=== PATIENT | male | born 1980 | race Two or more races ===

== ENCOUNTER 2019-02-17 20:24 | Inpatient (IN) | payer OTHER ==
[~2019-02-17] VITALS: Ht 175.3 cm; Wt 75.4 kg
[2019-02-17] MEDS ORDERED: CLONI1TA PO (20:46)
[2019-02-17] MEDS ORDERED: LUNE3TAB36 PO (20:46)
[2019-02-17] MEDS ORDERED: CLAR10CA3 PO (20:46)
[2019-02-17 21:20] LABS: HEMATOCRIT 44.5 % (42.0-52.0); HEMOGLOBIN 13.9 g/dl (13.5-17.5); MEAN CORPUSCULAR HEMOGLOBIN 25.6 pg (27.0-33.0); MEAN CORPUSCULAR HGB CONC 31.2 g/dl (32.0-36.5); MEAN CORPUSCULAR VOLUME 81.8 fl (80.0-96.0); PLATELET COUNT, AUTOMATED 235 10^3/uL (150-450); RED BLOOD COUNT 5.44 10^6/uL (4.30-6.10); WHITE BLOOD COUNT 8.2 10^3/uL (4.0-10.0)
[2019-02-17 21:35] LABS: AMPHETAMINES LEVEL URINE NEGATIVE (NEGATIVE); BARBITURATES URINE NEGATIVE (NEGATIVE); BENZODIAZEPINES URINE NEGATIVE (NEGATIVE); CANNABINOIDS URINE NEGATIVE (NEGATIVE); COCAINE METABOLITE URINE NEGATIVE (NEGATIVE); METHADONE URINE NEGATIVE (NEGATIVE); OPIATES URINE NEGATIVE (NEGATIVE); PHENCYCLIDINE URINE NEGATIVE (NEGATIVE)
[2019-02-17 21:38] LABS: ACETAMINOPHEN LEVEL < 2.0 UG/ML (10.0-30.0); ALBUMIN 4.2 GM/DL (3.2-5.2); ALT/SGPT 27 U/L (12-78); BILIRUBIN,DIRECT 0.1 MG/DL (0.0-0.2); BILIRUBIN,TOTAL 0.2 MG/DL (0.2-1.0); BLOOD UREA NITROGEN 14 MG/DL (7-18); CALCIUM LEVEL 8.7 MG/DL (8.5-10.1); CARBON DIOXIDE LEVEL 32 MEQ/L (21-32); CHLORIDE LEVEL 104 MEQ/L (98-107); CREATININE FOR GFR 1.18 MG/DL (0.70-1.30); ETHYL ALCOHOL (ETHANOL) 0.074 % (0.000-0.010); GLOMERULAR FILTRATION RATE > 60.0 (>60); GLUCOSE, FASTING 107 MG/DL (70-100); POTASSIUM SERUM 3.9 MEQ/L (3.5-5.1); SALICYLATE LEVEL 1.8 MG/DL (5.0-30.0); SODIUM LEVEL 143 MEQ/L (136-145)
[2019-02-17] MEDS ORDERED: BENA25CA4 PO (21:39)
[2019-02-17] MEDS ORDERED: SERT25TA88 PO (22:19)
[2019-02-17] MEDS ORDERED: FLON1SPR NARES (22:19)
[2019-02-17] MEDS ORDERED: DICY1CAP8 PO (22:19)
[2019-02-17] MEDS ORDERED: LORA-674 PO (22:19)
[2019-02-17] MEDS ORDERED: REFR0.5D8 OU (22:19)
[2019-02-17] MEDS ORDERED: OMEP-218 PO (22:19)
[2019-02-17] MEDS ORDERED: HYDR-3363 PO (22:19)
[2019-02-17] MEDS ORDERED: PROZ20CA11 PO (22:19)
[2019-02-17] MEDS ORDERED: MAALOX 30 ML SUSP *UDC PO PRN (23:15)
[2019-02-17] MEDS ORDERED: MOM 30ML SUSPENSION UDC PO PRN (23:15)
[2019-02-17] MEDS ORDERED: ACETAMINOPHEN TAB 650MG DOSE (2X325MG) PO PRN (23:15)
[2019-02-18 00:20] VITALS: BP 143/88
[2019-02-18] MEDS: traZODone 50 MG TAB PO PRN ×2 (00:35→22:01)
[2019-02-18 06:00] VITALS: BP 133/62
--- NOTE | 2019-02-18 08:32 | HPEPDOC ---
[facility] Medical History & Physical Date of Admission Feb 17, 2019 Date of Service: Feb 18, 2019 History and Physical CHIEF COMPLAINT: Anxiety/PTSD HISTORY OF PRESENT ILLNESS: Lauren is 38-year-old man with past medical history of PTSD and chronic right shoulder pain secondary to previous injury stated that he came into the hospital because he has no place to stay and has PTSD. He denies having any chronic medical problems and denies any significant depression or suicidal ideation at this time. He states that he feels well physically and just the mental stress he is dealing with at this time. Denies any complaints including chest pain, shortness of breath, constipation/diarrhea. PAST MEDICAL HISTORY: Refer to [facility] PAST SURGICAL HISTORY: None SOCIAL HISTORY: Denies tobacco or illicit drug use. Social alcohol consumption FAMILY HISTORY: None noted ALLERGIES: Please see below. REVIEW OF SYSTEMS: 10 point review of system negative except as stated in [facility] HOME MEDICATIONS: Please see below. PHYSICAL EXAMINATION: General: No acute distress, Alert Eyes: Normal sclera, EOMI, HELGA HENT: Atraumatic, neck supple, moist mucous membranes Cardiovascular: Normal rate, normal rhythm. No murmurs appreciated. Pulmonary: Clear to auscultation b/l, no wheezing GI: Soft, nontender, nondistended Skin: Warm and dry Neuro: CN grossly intact. No focal deficits. Strengths equal b/l. Psych: oriented x 3 LABORATORY DATA: See below. MICROBIOLOGY: Please see below. ASSESSMENT AND PLAN: 1. PTSD/stress - Assessment and therapy per Psych. - No suicidal ideation at time. Was in . 2. Chronic pain - Tylenol PRN for joint pain 3. TSH 4.5 - Asymptomatic. Reportedly thyroid function had been checked in the past and noted to be normal. - Will do free T4. f/u Free T4, likely will just need monitoring and repeat level in several weeks with PCP. Vital Signs Vital Signs Date Time Temp Pulse Resp B/P (MAP) Pulse Ox O2 Delivery O2 Flow Rate FiO2 02/18/19 06:00 98.5 53 16 133/62 (85) 02/18/19 00:20 99 Laboratory Data Labs 24H Laboratory Tests 2 02/17/19 20:40: Nucleated Red Blood Cells % (auto) 0.0, Anion Gap 7L, Glomerular Filtration Rate > 60.0, Calcium Level 8.7, Aspartate Amino Transf (AST/SGOT) 15, Alanine Aminotransferase (ALT/SGPT) 27, Alkaline Phosphatase 49, Total Bilirubin 0.2, Direct Bilirubin 0.1, Total Protein 8.0, Albumin 4.2, Albumin/Globulin Ratio 1.11, Thyroid Stimulating Hormone (TSH) 4.500H, Salicylates Level 1.8L, Urine Amphetamines Screen NEGATIVE, Urine Benzodiazepines Screen NEGATIVE, Urine Opiates Screen NEGATIVE, Urine Methadone Screen NEGATIVE, Acetaminophen Level < 2.0L, Urine Barbiturates Screen NEGATIVE, Urine Phencyclidine Screen NEGATIVE, Urine Cocaine Metabolite Screen NEGATIVE, Urine Cannabinoids Screen NEGATIVE, Ethyl Alcohol Level 0.074H CBC/BMP Laboratory Tests 02/17/19 20:40 Red Blood Count 5.44, Mean Corpuscular Volume 81.8, Mean Corpuscular Hemoglobin 25.6 L, Mean Corpuscular Hemoglobin Concent 31.2 L, Red Cell Distribution Width 13.6 Home Medications Scheduled Clonidine Hcl (Clonidine HCl) 0.1 Mg Tablet, 0.1 MG PO QHS Eszopiclone (Lunesta) 3 Mg Tablet, 3 MG PO QHS Fluoxetine HCl (Prozac) 20 Mg Capsule, 60 MG PO DAILY Fluticasone Propionate (Flonase Allergy Relief) 9.9 Ml [place].susp, 1 SPRAY NARES DAILY Scheduled PRN Carboxymethylcellulose Sodium (Refresh Tears) 15 Ml Drops, 2 DROP OU DAILY PRN for DRY EYES Dicyclomine HCl (Dicyclomine HCl) 10 Mg Capsule, 20 MG PO BID PRN for STOMACH PAIN Hydroxyzine HCl (Hydroxyzine HCl) 25 Mg Tablet, 25 MG PO DAILY PRN for ANXIETY/AGITATION Loratadine (Loratadine) 10 Mg Tablet, 10 MG PO DAILY PRN for ALLERGIES Allergies Coded Allergies: Sulfa (Sulfonamide Antibiotics) (Verified Adverse Reaction, Unknown, rash, 02/17/19) A-FIB/CHADSVASC A-FIB History Current/History of A-Fib/PAF?: No DELIA WALSH MD Feb 18, 2019 08:32
[2019-02-18] MEDS: buPROPion **XL** TABLET 150MG (WELLBUTRIN XL) PO SCH (13:50)
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
[2019-02-18 18:03] VITALS: BP 145/85
[2019-02-18] MEDS: cloNIDine 0.1 MG TAB PO SCH (22:02)
[2019-02-19 06:00] VITALS: BP 110/64
[2019-02-19] MEDS: buPROPion **XL** TABLET 150MG (WELLBUTRIN XL) PO SCH (08:05)
[2019-02-19] MEDS ORDERED: buPROPion **XL** TABLET 150MG (WELLBUTRIN XL) PO SCH (09:00)
--- NOTE | 2019-02-19 12:16 | MHHPEPDOC ---
[facility] History & Physical History and Physical DATE OF ADMISSION: Feb 17, 2019 at 23:15 LEGAL STATUS AT ADMISSION: . CHIEF COMPLAINT: . HISTORY OF PRESENT ILLNESS: Patient is a 38-year-old male, who PSYCHIATRIC REVIEW OF SYSTEMS: Affective: . Anxiety: . Trauma: . Psychosis: . Personality: . PAST PSYCHIATRIC HISTORY: Prior Psychiatric Disorder: . Outpatient Treatment: . Suicidal/Self injurious: [Denies]. Psychotropic Medication History: . ALLERGIES: Please see below. FAMILY PSYCHIATRIC HISTORY: [Denies]. SOCIAL HISTORY: Early Relations/development: . Sibling order: . Paternal relationships: . Education: . Occupational: . Legal: . Marital: . Economic: . Supports: . Abuse/trauma: . SUBSTANCE ABUSE HISTORY: . PAST MEDICAL/SURGICAL HISTORY: [None]. VITAL SIGNS: Please see below. MENTAL STATUS EXAMINATION: General appearance: Patient is a -year old male, who is . Speech: . Thought processes: . Thought content: . Abstract reasoning and computation: . Description of associations: . Description of abnormal or psychotic thoughts: . Judgment: . Insight: . Orientation: . Recent and remote memory: . Attention span and concentration: . Fund of knowledge: . Mood: "." Affect: . DIAGNOSES: 1. . 2. . 3. . ASSESSMENT: PROBLEM LIST: 1. . 2. . 3. . INITIAL TREATMENT PLAN: 1. Patient was admitted on a . 2. Complete history was obtained. 3. With patients permission, family will be contacted and database will be expanded. 4. Patients medication regimen will be reviewed and changed accordingly. 5. Patient will be provided with protected environment. 6. Patient will be treated with individual, group, and milieu therapies. 7. Patient will receive supportive psych-education. 8. Discharge planning will commence immediately. 9. Outpatient follow-up treatment will be strongly recommended. 10. The initial treatment plan will focus initially on: * Depression. * Risk for suicide. * Substance abuse. ESTIMATED LENGTH OF STAY: - DAYS. TIME SPENT COUNSELING AND COORDINATING INITIAL CARE: minutes. Vital Signs Vital Signs Date Time Temp Pulse Resp B/P (MAP) Pulse Ox O2 Delivery O2 Flow Rate FiO2 02/19/19 06:00 98.2 56 16 110/64 (79) 02/18/19 00:20 99 Medications Scheduled Clonidine Hcl (Clonidine HCl) 0.1 Mg Tablet, 0.1 MG PO QHS, (Reported) Eszopiclone (Lunesta) 3 Mg Tablet, 3 MG PO QHS, (Reported) Fluoxetine HCl (Prozac) 20 Mg Capsule, 60 MG PO DAILY, (Reported) Fluticasone Propionate (Flonase Allergy Relief) 9.9 Ml [place].susp, 1 SPRAY NARES DAILY, (Reported) Scheduled PRN Carboxymethylcellulose Sodium (Refresh Tears) 15 Ml Drops, 2 DROP OU DAILY PRN for DRY EYES, (Reported) Dicyclomine HCl (Dicyclomine HCl) 10 Mg Capsule, 20 MG PO BID PRN for STOMACH PAIN, (Reported) Hydroxyzine HCl (Hydroxyzine HCl) 25 Mg Tablet, 25 MG PO DAILY PRN for ANXIETY/AGITATION, (Reported) Loratadine (Loratadine) 10 Mg Tablet, 10 MG PO DAILY PRN for ALLERGIES, (Reported) Allergies Coded Allergies: Sulfa (Sulfonamide Antibiotics) (Verified Adverse Reaction, Unknown, rash, 02/17/19) RO STRATTON DO Feb 19, 2019 12:16
--- NOTE | 2019-02-19 12:17 | MHIPNPDOC ---
[facility] Progress Note Progress Note Inpatient Progress Note Kimberly Back Age 38 Male Date of : 1980 Date of Service: 02/19/2019 History of Present Illness The patient is a 38-year old man with a history of no significant past psychiatric history presents after multiple psychosocial stressors provoked him into mild passive SI. He had been noted to be drinking on the night in question and was unable to contract for safety. His is a strong support and reports that she had noticed him becoming increasingly depressed as he has not been able to engage in his regular activities recently due to multiple stressors including living in a hotel room as she has recently restationed taking care of their children. Interval History The patient was met with today. He described that he was feeling much improved on the Wellbutrin and that he noted that he was feeling close to ready for discharge as he was able to attend to his needs, engage in safety planning and attend groups with no behavioral issues on the unit. Review Of Systems The patient denies any symptoms of depression at this time. He demonstrates no signs or symptoms of marianna or psychosis. Psychotherapy None on this visit. Vital Signs Reviewed. Mental Status Examination General: Well dressed with good hygiene Speech: Spontaneous and fluid Thought processes: Linear and logical MSK: Smooth and coordinated gait, no signs of tremors or involuntary orofacial movements Thought content: Future orientated Abstract reasoning, and computation: Intact Description of associations: Intact Description of abnormal or psychotic thoughts: Denies any suicidal or homicidal ideation. Denies any auditory or visual hallucinations. Does not appear to be re sponding to internal stimuli. Does not appear to be endorsing any bizarre or paranoid ideation. Judgment: fair Insight: fair Orientation: Alert and orientated 3 Cognition: Grossly normal Recent and remote memory: Intact Attention span and concentration: Intact Fund of knowledge: Adequate Mood: "okay" Affect: Euthymic with a full range Diagnoses Adjustment disorder with disruption of mood and conduct. Alcohol use disorder, mild. Assessment and Plan The patient is a 38-year-old man with no significant past psychiatric history presents after multiple psychosocial stressors. He has done well on the unit with a relatively low dose of an antidepressant. He will likely be ready for discharge shortly as outpatient triage can be planned. Continue Wellbutrin 150 mg of extended release with no changes at this time. Disposition The patient will need further inpatient admission in order to further engage in safety planning. His disposition will likely result in discharge in the next few days. Time Spent 15 minutes [id number]. Vital Signs Vital Signs Date Time Temp Pulse Resp B/P (MAP) Pulse Ox O2 Delivery O2 Flow Rate FiO2 02/19/19 06:00 98.2 56 16 110/64 (79) 02/18/19 00:20 99 Current Medications Current Medications Acetaminophen (Tylenol Tab) 650 mg Q6HP PRN PO HEADACHE or DISCOMFORT; Start 02/17/19 at 23:15 Al Hydrox/Mg Hydrox/Simethicone (Mylanta) 30 ml Q4HP PRN PO HEARTBURN/INDIGESTION; Start 02/17/19 at 23:15 Bupropion HCl (Wellbutrin Xl) 150 mg DAILY PO Last administered on 02/19/19at 08:05; Start 02/18/19 at 12:30 Bupropion HCl (Wellbutrin Xl) 150 mg DAILY PO ; Start 02/19/19 at 09:00; Stop 02/19/19 at 09:00; Status DC Clonidine HCl (Catapres) 0.1 mg QHS PO Last administered on 02/18/19at 22:02; Start 02/18/19 at 21:00 Home Med (Med Rec Complete!) ASDIRECTED XX ; Start 02/17/19 at 22:45; Stop 02/17/19 at 22:45; Status DC Magnesium Hydroxide (Milk Of Magnesia) 30 ml DAILYPRN PRN PO CONSTIPATION; Sta rt 02/17/19 at 23:15 Trazodone HCl (Desyrel) 50 mg QHSP PRN PO INSOMNIA Last administered on 02/18/19at 22:01; Start 02/17/19 at 23:15 Allergies Coded Allergies: Sulfa (Sulfonamide Antibiotics) (Verified Adverse Reaction, Unknown, rash, 02/17/19) RO SRTATTON DO Feb 19, 2019 12:17
[2019-02-19 18:00] VITALS: BP 122/78
[2019-02-19 21:49] VITALS: BP 146/94
[2019-02-19] MEDS: cloNIDine 0.1 MG TAB PO SCH (21:49)
[2019-02-19] MEDS: traZODone 50 MG TAB PO PRN (21:49)
[2019-02-20 06:37] VITALS: BP 113/65
[2019-02-20] MEDS: buPROPion **XL** TABLET 150MG (WELLBUTRIN XL) PO SCH (08:32)
--- NOTE | 2019-02-20 10:15 | MHIPNPDOC ---
[facility] Progress Note Vital Signs Vital Signs Date Time Temp Pulse Resp B/P (MAP) Pulse Ox O2 Delivery O2 Flow Rate FiO2 02/20/19 06:37 97.2 63 14 113/65 (81) 02/18/19 00:20 99 Current Medications Current Medications Acetaminophen (Tylenol Tab) 650 mg Q6HP PRN PO HEADACHE or DISCOMFORT; Start 02/17/19 at 23:15 Al Hydrox/Mg Hydrox/Simethicone (Mylanta) 30 ml Q4HP PRN PO HEARTBURN/INDIGESTION; Start 02/17/19 at 23:15 Bupropion HCl (Wellbutrin Xl) 150 mg DAILY PO Last administered on 02/20/19at 08:32; Start 02/18/19 at 12:30 Bupropion HCl (Wellbutrin Xl) 150 mg DAILY PO ; Start 02/19/19 at 09:00; Stop 02/19/19 at 09:00; Status DC Clonidine HCl (Catapres) 0.1 mg QHS PO Last administered on 02/19/19at 21:49; Start 02/18/19 at 21:00 Home Med (Med Rec Complete!) ASDIRECTED XX ; Start 02/17/19 at 22:45; Stop 02/17/19 at 22:45; Status DC Magnesium Hydroxide (Milk Of Magnesia) 30 ml DAILYPRN PRN PO CONSTIPATION; Start 02/17/19 at 23:15 Trazodone HCl (Desyrel) 50 mg QHSP PRN PO INSOMNIA Last administered on 02/19/19at 21:49; Start 02/17/19 at 23:15 Allergies Coded Allergies: Sulfa (Sulfonamide Antibiotics) (Verified Adverse Reaction, Unknown, rash, 02/17/19) RO STRATTON DO Feb 20, 2019 10:15
[2019-02-20 11:14] VITALS: BP 113/65
--- NOTE | 2019-02-20 11:42 | MHDSPDOC ---
[facility] Discharge Summary Discharge Summary DATE OF ADMISSION: Feb 17, 2019 at 23:15 DATE OF DISCHARGE: 02/20/19 Discharge Kimberly Back Age 38 Male Date of : 1980 Date of Service: 02/20/2019 Diagnoses Adjustment disorder with disruption of mood and conduct. Alcohol use disorder, mild. History of Present Illness The patient is a 38-year old man with a history of no significant past psychiatric history presents after multiple psychosocial stressors provoked him into mild passive SI. He had been noted to be drinking on the night in question and was unable to contract for safety. His is a strong support and reports that she had noticed him becoming increasingly depressed as he has not been able to engage in his regular activities recently due to multiple stressors including living in a hotel room as she has recently restationed taking care of their children. [facility]. Treatment and Progress On The Unit The patient was admitted to the inpatient unit with primarily an adjustment issue. He quickly resolved and was able to contract for safety. He was changed on his medications to Wellbutrin 150 mg daily, that did fairly well for his mood. He was able to socialize well in the unit. He demonstrated no concerning behavior. He subsequently resolved. His who is a dehydrator was able to give him sufficient support and was amenable to taking him home after several days of admission. He was able to stabilize sufficiently and subsequently wish to be discharged. He no longer further met impatient criteria, and thus was discharged. Discharge Assessment The patient a 38-year-old who is highly functional with a master's degree presents in an acute adjustment problem related to multiple psychosocial stressors. Several days of milieu therapy and medication changes have returned his symptoms to baseline. His safety at this time is currently at baseline. His risk of suicide at his time is judged to be low. Mental Status Examination General: Well dressed with good hygiene Speech: Spontaneous and fluid Thought processes: Linear and logical MSK: Smooth and coordinated gait, no signs of tremors or involuntary orofacial movements Thought content: Future orientated Abstract reasoning, and computation: Intact Description of associations: Intact Description of abnormal or psychotic thoughts: Denies any suicidal or homicidal ideation. Denies any auditory or visual hallucinations. Does not appear to be responding to internal stimuli. Does not appear to be endorsing any bizarre or paranoid ideation. Judgment: fair Insight: fair Orientation: Alert and orientated 3 Cognition: Grossly normal Recent and remote memory: Intact Attention span and concentration: Intact Fund of knowledge: Adequate Mood: "okay" Affect: Euthymic with a full range Follow Up The social work team worked during the predischarge meeting in order to evaluate for further issues of lethality address them fully before discharge. They worked on safety planning with the patient's family members in order to ensure that the patient will have a safe and effective discharge. The amount of time spent in the coordination of care for this patient was approximately 30 minutes. Tuesday Vital Signs/I&Os Vital Signs Date Time Temp Pulse Resp B/P (MAP) Pulse Ox O2 Delivery O2 Flow Rate FiO2 02/20/19 11:14 97.2 63 14 113/65 99 Medications Scheduled Bupropion Hcl (Bupropion Xl) 150 Mg Tab.er.24h, 150 MG PO DAILY for mood for 7 Days, #7 Clonidine Hcl (Clonidine HCl) 0.1 Mg Tablet, 0.1 MG PO QHS, (Reported) Scheduled PRN Carboxymethylcellulose Sodium (Refresh Tears) 15 Ml Drops, 2 DROP OU DAILY PRN for DRY EYES, (Reported) Dicyclomine HCl (Dicyclomine HCl) 10 Mg Capsule, 20 MG PO BID PRN for STOMACH PAIN, (Reported) Loratadine (Loratadine) 10 Mg Tablet, 10 MG PO DAILY PRN for ALLERGIES, (Reported) Allergies Coded Allergies: Sulfa (Sulfonamide Antibiotics) (Verified Adverse Reaction, Unknown, rash, 02/17/19) RO STRATTON DO Feb 20, 2019 11:41
[2019-02-20] MEDS ORDERED: BUPR150T3 PO (11:44)
== END 2019-02-20 13:00 | disposition home or self-care (01) | DRG 882 ==
LOC: M ED 20:24 → M ED INP 23:15 → M PSY 23:47
PROVIDERS: ADMIT Psychiatry & Neurology Psychiatry; ATTEND Psychiatry & Neurology Addiction Medicine
DX: F43.25 Adjustment disorder with mixed disturbance of emotions and conduct (principal); F43.10 Post-traumatic stress disorder, unspecified; Z91.82 Personal history of military deployment; F10.10 Alcohol abuse, uncomplicated; Z88.2 Allergy status to sulfonamides; Z79.899 Other long term (current) drug therapy

== ENCOUNTER → 2019-11-14 | Outpatient (CLI) | payer OTHER ==
[~2019-11-14] MED LIST: BENA25CA4 PO; BUPR150T3 PO; CLAR10CA3 PO; CLONI1TA PO; DICY1CAP8 PO; FLON1SPR NARES; HYDR-3363 PO; LORA-674 PO; LUNE3TAB36 PO; OMEP-218 PO; PROZ20CA11 PO; REFR0.5D8 OU; SERT25TA21 PO
--- NOTE | 2019-11-14 10:27 | REP ---
MAXILLOFACIAL CT STUDY. HISTORY: Chronic maxillary sinusitis. CT FINDINGS: Preliminary digital parts counter associate radiographs are unremarkable. On axial CT images and coronal multiplanar re-formation images, there is a 2.5 x 1.6 cm mucous retention cyst in the floor the right maxillary sinus. The right maxillary sinus is otherwise clear. The left maxillary sinus is clear. Bony margins are intact. Ethmoid air cells are clear. Frontal sinuses are clear. Sphenoid air cells are unremarkable. Mastoid aeration is normal and symmetric. The middle ear cavities are aerated bilaterally. No intraorbital abnormality is seen. Visualized intracranial structures and deep facial soft tissues are unremarkable. There is no evidence of a nasal polyp. Bony nasal septum deviates somewhat to the left anteriorly without a visible beak. Ostiomeatal complexes are patent bilaterally on coronal multiplanar re-formation images. IMPRESSION: Mucous retention cyst in the floor the right maxillary sinus. Leftward nasal septal deviation. Otherwise negative. Electronically Signed by Hernandez Allen MD 11/14/2019 01:06 P
== END ==
LOC: M RAD 09:00
PROVIDERS: ATTEND Otolaryngology
DX: J34.1 Cyst and mucocele of nose and nasal sinus (principal); J34.2 Deviated nasal septum; J32.0 Chronic maxillary sinusitis

== ENCOUNTER 2020-03-12 09:41 | Day surgery (SDC) | payer OTHER ==
[~2020-03-12] VITALS: Ht 175.3 cm; Wt 74.8 kg
[~2020-03-12 09:41] MED LIST changes: +AIMO70IN2 SQ
[2020-03-12] MEDS ORDERED: LIDOCAINE 2% 100MG/5ML SDV (FOR ANES.) As Ordered ONE (10:35)
[2020-03-12] MEDS ORDERED: fentaNYL 100 MCG/2 ML INJECTION (J3010) As Ordered ONE (10:35)
[2020-03-12] MEDS ORDERED: SUGAMMADEX SODIUM 500 MG/5 ML VIAL (BRIDION) As Ordered ONE ×2 (10:35→11:35)
[2020-03-12] MEDS ORDERED: MIDAZOLAM INJ 2MG/2ML VIAL (J2250 PER 1MG) As Ordered ONE (10:35)
[2020-03-12] MEDS ORDERED: propofoL 200 MG/20 ML VIAL As Ordered ONE (10:35)
[2020-03-12] MEDS ORDERED: ONDANSETRON 4MG/2ML VIAL As Ordered ONE (10:35)
[2020-03-12] MEDS ORDERED: dexameTHASONE 4 MG/ML 1ML VIAL (J1100 PER 1MG) As Ordered ONE (10:35)
[2020-03-12] MEDS ORDERED: ROCURONIUM BROMIDE 50 MG/5 ML VIAL As Ordered ONE (10:35)
[2020-03-12] MEDS ORDERED: EPINEPHrine 1MG/ML INJ 30ML MD-VIAL As Ordered ONE (10:39)
[2020-03-12] MEDS ORDERED: METHYLENE BLUE 0.5% (5MG/ML) 10 ML AMP (PROVAYBLUE) As Ordered ONE (10:39)
[2020-03-12] MEDS ORDERED: LIDOCAINE W/EPINEPHRINE 1% 20ML VIAL As Ordered ONE (10:39)
[2020-03-12] MEDS ORDERED: LABETALOL 100MG/20ML VIAL As Ordered ONE (11:17)
[2020-03-12] MEDS ORDERED: SODIUM CHLORIDE 0.9% NASAL GEL 15GM (AYR) As Ordered ONE (11:42)
== END 2020-03-12 14:05 | disposition home or self-care (01) ==
LOC: M SDC 09:41
PROVIDERS: ATTEND Otolaryngology
DX: J34.2 Deviated nasal septum (principal); F43.10 Post-traumatic stress disorder, unspecified; G47.30 Sleep apnea, unspecified; F41.9 Anxiety disorder, unspecified; F32.9 Major depressive disorder, single episode, unspecified; Z88.2 Allergy status to sulfonamides; Z79.899 Other long term (current) drug therapy; G43.909 Migraine, unspecified, not intractable, without status migrainosus
CPT/HCPCS: 30520; 88300; J1100; J2250; J2405; J3010; Q9968

== ENCOUNTER 2020-09-01 09:26 | Day surgery (SDC) | payer OTHER ==
[~2020-09-01] VITALS: Ht 182.9 cm; Wt 75.3 kg
[~2020-09-01 09:26] MED LIST changes: -BUPR150T3 PO; +BUPR150T4 PO; +LORA2CON5 PO; +NS 1,000 ML IV ONE; +PANT40TA29 PO
--- OUTSIDE RECORDS SUMMARY | 2020-09-01 09:31 | CCD | Continuity of Care Document ---
Author Author Kimberly SALCEDO M.D Organization Unknown Address [address] [place] [id number] Phone [phone] Care Team Providers Care Corn Detasseler Name Role Phone Wander Rodriguez MD [facility] [phone] Problems Active Problems Provider Date Abdominal pain Evan Salcedo M.D. Onset: 08/21/19 21 Social History Type Date Description Comments Sex Unknown ETOH Use Denies alcohol use Tobacco Use Start: Unknown Patient has never smoked Allergies, Adverse Reactions, Alerts Description No Known Drug Allergies Medications Active Medications SIG Qnty Indications Ordering Provide r Date Bupropion Hydrochloride ER (XL) 150mg Tablets ER 24HR Unknown Pantoprazole Sodium 40mg Tablets DR Unknown Lunesta 3mg Tablets Unknown Clonidine 0.2mg/24HR Patches Weekly Unknown Lorazepam 0.5mg Tablets Unknown Dicyclomine HCL 20mg Tablets Unknown Immunizations Description No Information Available Vital Signs Date Vital Result Comment 08/21/2020 11:58am Height 69 inches 5'9" Weight 165.00 lb BP Systolic 121 mmHg BP Diastolic 89 mmHg Heart Rate 54 /min BMI (Body Mass Index) 24.4 kg/m2 Weight 74.844 kg Body Temperature 97.5 F Results Description No Information Available Procedures Description No Information Available Medical Devices Description No Information Available Encounters Description No Information Available Assessments Date Code Description Provider 08/21/2020 B96.81 Helicobacter pylori [H. pylori] as the cause of diseases classified elsewhere Evan Salcedo M.D. Plan of Treatment Future Appointment(s):* 09/01/2020 2:00 pm - Evan Salcedo M.D. at Main Office 08/21/2020 - Evan Salcedo M.D.* B96.81 Helicobacter pylori [H. pylori] as the cause of diseases classified elsewhere* Comments:* 40 yo male who presents for a h/o positive H. Pylori. He was treated for this with antibiotics. He has chronic ruq abdominal cramps. No weight loss. He is on Pantoprazole + Dicyclomine. Here for an egd. Plan:1. Egd + biopsies.2. Informed consent. Functional Status Description No Information Available Mental Status Description No Information Available Referrals Refer to Reason for Referral Status Appt Date Evan Salcedo M.D. Scheduled [address] [place] [phone]
--- OUTSIDE RECORDS SUMMARY | 2020-09-01 09:31 | CCD | Continuity of Care Document ---
Author Author Kimberly SALCEDO M.D Organization Unknown Address [address] [place] [id number] Phone [phone] Care Team Providers Care Seo Consultant Name Role Phone Wander Rodriguez MD [facility] [phone] Problems Active Problems Provider Date Abdominal pain [...] Medical Devices Description No Information Available Encounters Type Date Location Provider Dx Diagnosis Office Visit 08/21/2020 11:15a Main Office Evan Salcedo M.D. B 96.81 Helicobacter pylori as the cause of diseases classd elswhr Assessments Date Code Description Provider 08/21/2020 B96.81 [...] Status Appt Date Evan Salcedo M.D. Scheduled [address] [place] [address] [phone]
--- OUTSIDE RECORDS SUMMARY | 2020-09-01 09:32 | CCD ---
Author Author [facility] Address Unknown Phone Unavailable Care Team Providers Care Television Analyzer Name Role Phone Mike Salcedo MD Unavailable Unavailable Mike Salcedo MD Unavailable Unavailable Mike Salcedo MD Unavailable Unavailable Mike Salcedo MD Unavailable Unavailable Mike Salcedo MD Unavailable Unavailable Mike Salcedo MD Unavailable Unavailable Mike Salcedo MD Unavailable Unavailable Mike Salcedo MD Unavailable Unavailable Mike Salcedo MD Unavailable Unavailable Mike Salcedo MD Unavailable Unavailable Mike Salcedo MD Unavailable Unavailable Mike Salcedo MD Unavailable Unavailable Mike Salcedo MD Unavailable Unavailable Mike Salcedo MD Unavailable Unavailable Mike Salcedo MD Unavailable Unavailable Mike Salcedo MD Unavailable Unavailable Mike Salcedo MD Unavailable Unavailable Mike Salcedo MD Unavailable Unavailable Mike Salcedo MD Unavailable Unavailable Mike Salcedo MD Unavailable Unavailable Mike Salcedo MD Unavailable Unavailable Mike Salcedo MD Unavailable Unavailable Mike Salcedo MD Unavailable Unavailable Mike Salcedo MD Unavailable Unavailable Mike Salcedo MD Unavailable Unavailable Mike Salcedo MD Unavailable Unavailable Mike Salcedo MD Unavailable Unavailable iMke Salcedo MD Unavailable Unavailable Mike Salcedo MD Unavailable Unavailable Mike Salcedo MD Unavailable Unavailable Mike Salcedo MD Unavailable Unavailable Mike Salcedo MD Unavailable Unavailable Mike Salcedo MD Unavailable Unavailable Matias, S Evan MD Unavailable Unavailable Matias, S Evan MD Unavailable Unavailable Matias, S Evan MD Unavailable Unavailable Matias, S Evan MD Unavailable Unavailable Matias, S Evan MD Unavailable Unavailable Matias, S Evan MD Unavailable Unavailable Matias, S Evan MD Unavailable Unavailable Matias, S Evan MD Unavailable Unavailable Matias, S Evan MD Unavailable Unavailable Matias, S Evan MD Unavailable Unavailable Matias, S Evan MD Unavailable Unavailable Matias, S Evan MD Unavailable Unavailable Matias, S Evan MD Unavailable Unavailable Matias, S Evan MD Unavailable Unavailable Safia GEORGE MD Unavailable Unavailable Safia GEORGE MD Unavailable Unavailable Safia GEORGE MD Unavailable Unavailable Safia GEORGE MD Unavailable Unavailable Safia GEORGE MD Unavailable Unavailable Safia GEORGE MD Unavailable Unavailable Safia GEORGE MD Unavailable Unavailable Safia GEORGE MD Unavailable Unavailable Safia GEORGE MD Unavailable Unavailable Safia GEORGE MD Unavailable Unavailable Safia GEORGE MD Unavailable Unavailable Safia GEORGE MD Unavailable Unavailable Safia GEORGE MD Unavailable Unavailable Safia GEORGE MD Unavailable Unavailable Safia GEORGE MD Unavailable Unavailable Safia GEORGE MD Unavailable Unavailable Safia GEORGE MD Unavailable Unavailable Safia GEORGE MD Unavailable Unavailable Safia GEORGE MD Unavailable Unavailable Safia GEORGE MD Unavailable Unavailable Safia GEORGE MD Unavailable Unavailable Safia GEORGE MD Unavailable Unavailable Safia GEORGE MD Unavailable Unavailable Safia GEORGE MD Unavailable Unavailable Safia GEORGE MD Unavailable Unavailable Safia GEORGE MD Unavailable Unavailable Safia GEORGE MD Unavailable Unavailable Safia GEORGE MD Unavailable Unavailable Safia GEORGE MD Unavailable Unavailable Safia GEORGE MD Unavailable Unavailable Safia GEORGE MD Unavailable Unavailable Safia GEORGE MD Unavailable Unavailable Safia GEORGE MD Unavailable Unavailable Safia GEORGE MD Unavailable Unavailable Safia GEORGE MD Unavailable Unavailable Safia GEORGE MD Unavailable Unavailable Safia GEORGE MD Unavailable Unavailable BRIAN DING Unavailable Unavailable [place] GUAMAN MD Unavailable Unavailable [place] GUAMAN MD Unavailable Unavailable [place] GUAMAN MD Unavailable Unavailable [place] GUAMAN MD Unavailable Unavailable [place] GUAMAN MD Unavailable Unavailable [place] GUAMAN MD Unavailable Unavailable [place] GUAMAN MD Unavailable Unavailable [place] GUAMAN MD Unavailable Unavailable [place] GUAMAN MD Unavailable Unavailable [place] GUAMAN MD Unavailable Unavailable [place] GUAMAN MD Unavailable Unavailable [place] GUAMAN MD Unavailable Unavailable [place] GUAMAN MD Unavailable Unavailable [place] GUAMAN MD Unavailable Unavailable [place] GUAMAN MD Unavailable Unavailable [place] GUAMAN MD Unavailable Unavailable [place] GUAMAN MD Unavailable Unavailable [place] GUAMAN MD Unavailable Unavailable [place] GUAMAN MD Unavailable Unavailable [place] GUAMAN MD Unavailable Unavailable [place] GUAMAN MD Unavailable Unavailable [place] GUAMAN MD Unavailable Unavailable [place] GUAMAN MD Unavailable Unavailable [place] GUAMAN MD Unavailable Unavailable [place] GUAMAN MD Unavailable Unavailable [place] GUAMAN MD Unavailable Unavailable [place] GUAMAN MD Unavailable Unavailable [place] GUAMAN MD Unavailable Unavailable [place] GUAMAN MD Unavailable Unavailable [place] GUAMAN MD Unavailable Unavailable [place] GUAMAN MD Unavailable Unavailable [place] GUAMAN MD Unavailable Unavailable [place] GUAMAN MD Unavailable Unavailable [place] GUAMAN MD Unavailable Unavailable [place] GUAMAN MD Unavailable Unavailable OBEN, T ANDREW Unavailable Unavailable OBEN, T ANDREW Unavailable Unavailable OBEN, T ANDREW MD Unavailable Unavailable OBEN, T ANDREW Unavailable Unavailable OBEN, T ANDREW Unavailable Unavailable OBEN, T ANDREW Unavailable Unavailable OBEN, T ANDREW Unavailable Unavailable OBEN, T ANDREW MD Unavailable Unavailable OBEN, T ANDREW MD Unavailable Unavailable OBEN, T ANDREW MD Unavailable Unavailable OBEN, T ANDREW Unavailable Unavailable OBEN, T ANDREW Unavailable Unavailable OBEN, T ANDREW MD Unavailable Unavailable OBEN, T ANDREW MD Unavailable Unavailable OBEN, T ANDREW MD Unavailable Unavailable OBEN, T ANDREW MD Unavailable Unavailable OBEN, T ANDREW MD Unavailable Unavailable OBEN, T ANDREW MD Unavailable Unavailable OBEN, T ANDREW MD Unavailable Unavailable OBEN, T ANDREW MD Unavailable Unavailable OBEN, T ANDREW MD Unavailable Unavailable OBEN, T ANDREW MD Unavailable Unavailable OBEN, T ANDREW MD Unavailable Unavailable OBEN, T ANDREW MD Unavailable Unavailable OBEN, T ANDREW MD Unavailable Unavailable OBEN, T ANDREW MD Unavailable Unavailable OBEN, T ANDREW MD Unavailable Unavailable OBEN, T ANDREW MD Unavailable Unavailable OBEN, T ANDREW MD Unavailable Unavailable OBEN, T ANDREW MD Unavailable Unavailable OBEN, T ANDREW MD Unavailable Unavailable OBEN, T ANDREW MD Unavailable Unavailable OBEN, T ANDREW MD Unavailable Unavailable OBEN, T ANDREW MD Unavailable Unavailable OBEN, T ANDREW MD Unavailable Unavailable OBEN, T ANDREW MD Unavailable Unavailable OBEN, T ANDREW MD Unavailable Unavailable OBEN, T ANDREW MD Unavailable Unavailable OBEN, T ANDREW MD Unavailable Unavailable OBEN, T ANDREW MD Unavailable Unavailable OBEN, T ANDREW MD Unavailable Unavailable OBEN, T ANDREW MD Unavailable Unavailable OBEN, T ANDREW MD Unavailable Unavailable OBEN, T ANDREW MD Unavailable Unavailable OBEN, T ANDREW MD Unavailable Unavailable OBEN, T ANDREW MD Unavailable Unavailable OBEN, T ANDREW MD Unavailable Unavailable OBEN, T ANDREW MD Unavailable Unavailable OBEN, T ANDREW MD Unavailable Unavailable OBEN, T ANDREW MD Unavailable Unavailable OBEN, T ANDREW MD Unavailable Unavailable OBEN, T ANDREW MD Unavailable Unavailable OBEN, T ANDREW MD Unavailable Unavailable OBEN, T ANDREW MD Unavailable Unavailable OBEN, T ANDREW MD Unavailable Unavailable OBEN, T ANDREW MD Unavailable Unavailable OBEN, T ANDREW MD Unavailable Unavailable OBEN, T ANDREW MD Unavailable Unavailable OBEN, T ANDREW MD Unavailable Unavailable OBEN, T ANDREW MD Unavailable Unavailable OBEN, T NADREW MD Unavailable Unavailable OBEN, T ANDRWE MD Unavailable Unavailable OBEN, T ANDREW MD Unavailable Unavailable OBEN, T ANDREW MD Unavailable Unavailable OBEN, T ANDREW MD Unavailable Unavailable OBEN, T ANDREW MD Unavailable Unavailable OBEN, T ANDREW MD Unavailable Unavailable OBEN, T ANDREW MD Unavailable Unavailable OBEN, T ANDREW MD Unavailable Unavailable OBEN, T ANDREW MD Unavailable Unavailable OBEN, T ANDREW MD Unavailable Unavailable OBEN, T ANDREW MD Unavailable Unavailable OBEN, T ANDREW MD Unavailable Unavailable OBEN, T ANDREW MD Unavailable Unavailable OBEN, T ANDREW MD Unavailable Unavailable OBEN, T ANDREW MD Unavailable Unavailable OBEN, T ANDREW MD Unavailable Unavailable OBEN, T ANDREW MD Unavailable Unavailable OBEN, T ANDREW MD Unavailable Unavailable OBEN, T ANDREW MD Unavailable Unavailable OBEN, T ANDREW MD Unavailable Unavailable OBEN, T ANDREW MD Unavailable Unavailable OBEN, T ANDREW MD Unavailable Unavailable OBEN, T ANDREW MD Unavailable Unavailable OBEN, T ANDREW MD Unavailable Unavailable OBJa MAHAN MD Unavailable Unavailable OBJa MAHAN MD Unavailable Unavailable OBJa MAHAN MD Unavailable Unavailable OBJa MAHAN MD Unavailable Unavailable OBJa MAHAN MD Unavailable Unavailable OBJa MAHAN MD Unavailable Unavailable OBJa MAHAN MD Unavailable Unavailable OBJa MAHAN MD Unavailable Unavailable OBKALLI T ANDREW HALE Unavailable Unavailable OBJa MAHAN MD Unavailable Unavailable OBJa MAHAN MD Unavailable Unavailable OBKALLI T ANDREW HALE Unavailable Unavailable OBKALLI T ANDREW HALE Unavailable Unavailable OBKALLI T ANDREW HALE Unavailable Unavailable OBJa MAHAN MD Unavailable Unavailable OBKALLI T ANDREW HALE Unavailable Unavailable OBJa MAHAN MD Unavailable Unavailable OBJa MAHAN MD Unavailable Unavailable OBJa MAHAN MD Unavailable Unavailable OBJa MAHAN MD Unavailable Unavailable Ja DANIEL MD Unavailable Unavailable Ayana Weinberg MD Unavailable Unavailable Ayana Weinberg MD Unavailable Unavailable Ayana Weinberg MD Unavailable Unavailable Ayana Weinberg MD Unavailable Unavailable Ayana Weinberg MD Unavailable Unavailable Ayana Weinberg MD Unavailable Unavailable Ayana Weinberg MD Unavailable Unavailable Ayana Weinberg MD Unavailable Unavailable Ayana Weinberg MD Unavailable Unavailable Ayana Weinberg MD Unavailable Unavailable Ayana Weinberg MD Unavailable Unavailable Ayana Weinberg MD Unavailable Unavailable Ayana Weinberg MD Unavailable Unavailable Ayana Weinberg MD Unavailable Unavailable Ayana Weinberg MD Unavailable Unavailable Ayana Weinberg MD Unavailable Unavailable Ayana Weinberg MD Unavailable Unavailable Ayana Weinberg MD Unavailable Unavailable Ayana Weinberg MD Unavailable Unavailable Ayana Weinberg MD Unavailable Unavailable Ayana Weinberg MD Unavailable Unavailable Ayana Weinberg MD Unavailable Unavailable Ayana Weinberg MD Unavailable Unavailable Ayana Weinberg MD Unavailable Unavailable Ayana Weinberg MD Unavailable Unavailable Ayana Weinberg MD Unavailable Unavailable Ayana Weinberg MD Unavailable Unavailable Ayana Weinberg MD Unavailable Unavailable Ayana Weinberg MD Unavailable Unavailable Ayana Weinberg MD Unavailable Unavailable Ayana Weinberg MD Unavailable Unavailable Ayana Weinberg MD Unavailable Unavailable Ayana Weinberg MD Unavailable Unavailable Ayana Weinberg MD Unavailable Unavailable Ayana Weinberg MD Unavailable Unavailable Ayana Weinberg MD Unavailable Unavailable Ayana Weinberg MD Unavailable Unavailable Ayana Weinberg MD Unavailable Unavailable Sultana, Ayana Bellamy MD Unavailable Unavailable Sultana, Ayana Bellamy MD Unavailable Unavailable Sultana, Ayana Bellamy MD Unavailable Unavailable Sultana, Ayana Bellamy MD Unavailable Unavailable Sultana, Ayana Bellamy MD Unavailable Unavailable Sultana, Ayana Bellamy MD Unavailable Unavailable Ali, Juan Carlos MD Unavailable Unavailable Ali, Juan Carlos MD Unavailable Unavailable Ali, Juan Carlos MD Unavailable Unavailable Ali, Juan Carlos MD Unavailable Unavailable Ali, Juan Carlos MD Unavailable Unavailable Ali, Juan Carlos MD Unavailable Unavailable Ali, Juan Carlos MD Unavailable Unavailable Ali, Juan Carlos MD Unavailable Unavailable Ali, Juan Carlos MD Unavailable Unavailable Ali, Juan Carlos MD Unavailable Unavailable Ali, Juan Carlos MD Unavailable Unavailable Ali, Juan Carlos MD Unavailable Unavailable Ali, Juan Carlos MD Unavailable Unavailable Ali, Juan Carlos MD Unavailable Unavailable Ali, Juan Carlos MD Unavailable Unavailable Ali, Juan Carlos MD Unavailable Unavailable Ali, Juan Carlos MD Unavailable Unavailable Ali, Juan Carlos MD Unavailable Unavailable Ali, Juan Carlos MD Unavailable Unavailable Ali, Juan Carlos MD Unavailable Unavailable Ali, Juan Carlos MD Unavailable Unavailable Ali, Juan Carlos MD Unavailable Unavailable Ali, Juan Carlos MD Unavailable Unavailable Ali, Juan Carlos MD Unavailable Unavailable Ali, Juan Carlos MD Unavailable Unavailable Ali, Juan Carlos MD Unavailable Unavailable Ali, Juan Carlos MD Unavailable Unavailable Ali, Juan Carlos MD Unavailable Unavailable Ali, Juan Carlos MD Unavailable Unavailable Ali, Juan Calros MD Unavailable Unavailable Ali, Juan Carlos MD Unavailable Unavailable Ali, Juan Carlos MD Unavailable Unavailable Ali, Juan Carlos MD Unavailable Unavailable Ali, Juan Carlos MD Unavailable Unavailable Ali, Juan Carlos MD Unavailable Unavailable Ali, Juan Carlos MD Unavailable Unavailable Ali, Juan Carlos MD Unavailable Unavailable Ali, Juan Carlos MD Unavailable Unavailable Ali, Juan Carlos MD Unavailable Unavailable Ali, Juan Carlos MD Unavailable Unavailable Ali, Juan Carlos MD Unavailable Unavailable Ali, Juan Carlos MD Unavailable Unavailable Ali, Juan Carlos MD Unavailable Unavailable Ali, Juan Carlos MD Unavailable Unavailable Ali, Juan Carlos MD Unavailable Unavailable Ali, Ujan Carlos MD Unavailable Unavailable Ali, Juan Carlos MD Unavailable Unavailable Ali, Juan Carlos MD Unavailable Unavailable Ali, Juan Carlos MD Unavailable Unavailable Ali, Juan Carlos MD Unavailable Unavailable Ali, Juan Carlos MD Unavailable Unavailable Ali, Juan Carlos MD Unavailable Unavailable BARON DE LA ROSA Unavailable Unavailable NO, PCP Unavailable Unavailable Re-disclosure Warning The records that you are about to access may contain information from federally-assisted alcohol or drug abuse programs. If such information is present, then the following federally mandated warning applies: This information has been disclosed to you from records protected by federal confidentiality rules (42 CFR part 2). The federal rules prohibit you from making any further disclosure of this information unless further disclosure is expressly permitted by the written consent of the person to whom it pertains or as otherwise permitted by 42 CFR part 2. A general authorization for the release of medical or other information is NOT sufficient for this purpose. The Federal rules restrict any use of the information to criminally investigate or prosecute any alcohol or drug abuse patient.The records that you are about to access may contain highly sensitive health information, the redisclosure of which is protected by Article 27-F of the [place] Public Health law. If you continue you may have access to information: Regarding HIV / AIDS; Provided by facilities licensed or operated by the [employer] Office of Mental Health; or Provided by the [employer] Office for People With Developmental Disabilities. If such information is present, then the following [employer] mandated warning applies: This information has been disclosed to you from confidential records which are protected by state law. State law prohibits you from making any further disclosure of this information without the specific written consent of the person to whom it pertains, or as otherwise permitted by law. Any unauthorized further disclosure in violation of state law may result in a fine or nursing home sentence or both. A general authorization for the release of medical or other information is NOT sufficient authorization for further disc losure. Allergies and Adverse Reactions Type Description Substance Reaction Status Data Source(s ) No Known Environmental Allergies No Known Environmental Al lergies [facility] No Known Food Allergies No Known Food Allergies [facility] CLASS SULFA (sulfonamide) SULFA (sulfonamide) RASH [facility] Encounters Encounter Providers Location Date Indications Data Source(s ) Outpatient Attender: BRIAN DING 08/21/2020 03:25:00 PM [facility] Outpatient Attender: Evan Salcedo MD Main Office 08/21/2020 10:15:00 AM EST [facility] ([facility]) Outpatient Attender: BRIAN DING 07/31/2020 03:15:00 PM [facility] Outpatient Attender: BRIAN DING 07/17/2020 04:46:00 PM [facility] Outpatient Attender: BRAIN DING 06/19/2020 02:00:00 PM [facility] Outpatient Attender: BRIAN DING 05/29/2020 04:42:00 PM [facility] Outpatient Attender: Josesito Weinberg MDConsultant: GAEL Pierson MD 05/28/2020 01:11:00 PM EDT - 05/28/2020 01:11:00 PM EDT [facility] Outpatient Attender: BRIAN DING 05/15/2020 02:00:00 PM [facility] Outpatient Attender: Josesito TOMASonsultant: GAEL Pierson MD 05/13/2020 07:15:00 AM EDT - 05/13/2020 01:04:00 PM [facility] Patient discharged. Outpatient Attender: Josesito TOMASonsultant: GAEL Pierson MD 05/08/2020 02:04:52 PM EDT - 05/09/2020 02:25:00 PM EDT [facility] Patient discharged. Outpatient Attender: Josesito Gaming raysa: ANDREW DANIEL MDConsultant: GAEL GEORGE MD 05/01/2020 02:57:00 PM EDT - 05/01/2020 02:57:00 PM [facility] Outpatient Attender: Juan Carlos Martin MD Main office [facility] 04/29[facility]2020 [facility]15[facility] Att[facility]: BRIAN DING 04/24/2020 12:00:00 PM [facility] Outpatient Attender: ANDREW TOMASonsultant: GAEL GEORGE MD 04/23/2020 08:44:00 AM EDT - 04/23/2020 09:44:00 AM EDT [facility] Patient discharged. Outpatient Attender: ANDREW DANIEL MDConsultant: GEETHA GEORGE MDConsultant: ANABELL MERCADO 04/14/2020 01:19:22 PM EDT - 04/15/2020 09:42:00 AM EDT [facility] Patient discharged. Outpatient Attender: BRIAN DING 04/10/2020 02:00:00 PM [facility] Outpatient Attender: ANDREW Vieyraultant: GAEL GEORGE MD 04/09/2020 09:00:00 AM EDT - 04/09/2020 09:00:00 AM EDT [facility] Outpatient Attender: ANDREW DANIEL MD [facility] 04/09/2020 09:00:0 0 AM EDT [facility] ([facility]) Outpatient Attender: BRIAN DING 03/20/2020 02:00:00 PM [facility] Outpatient Attender: BRIAN DING 02/27/2020 11:00:00 AM [facility] Outpatient Attender: TEREZA Guaman/Kady/Ish/Reind l 01/30/2020 09:15:00 AM EDT [facility] [place] [facility] Outpatient Attender: BRIAN DING 01/25/2020 03:30:00 PM [facility] Outpatient Attender: BRIAN DING 01/03/2020 03:11:00 PM [facility] Outpatient Attender: Juan Carlos Martin MD Main office - [place] 12/28/2019 11:15:00 AM EDT [facility] ([facility]) Outpatient Attender: BRIAN DING 12/13/2019 01:30:00 PM [facility] Outpatient Attender: BRIAN DING 11/28/2019 01:27:00 PM [facility] Outpatient 11/28/2019 05:20:00 [facility] Attender: TEREZA Guaman/[place]/Ish/Reind l 11/08/2019 02:00:00 PM EDT [facility] ([facility] [place] [facility] Outpatient Attender: BRIAN DING 10/25/2019 12:07:00 PM [facility] Outpatient Attender: BRIAN DING 10/18/2019 01:01:00 PM [facility] Outpatient Attender: BRIAN DING 09/27/2019 12:00:00 PM [facility] Outpatient Attender: BRIAN DING 09/13/2019 12:00:00 PM [facility] Outpatient Attender: BRIAN DING 09/06/2019 12:20:00 PM [facility] Outpatient Attender: BRIAN DING 08/30/2019 12:15:00 PM [facility] Outpatient Attender: BRIAN DING 08/23/2019 12:18:00 PM [facility] Outpatient Attender: BRIAN DING 08/16/2019 12:01:00 PM [facility] Outpatient Attender: BRIAN DING 07/26/2019 12:59:00 PM [facility] Outpatient Attender: BRIAN DING 07/05/2019 12:04:00 PM [facility] Outpatient Attender: BRIAN DING 06/28/2019 12:13:00 PM [facility] Outpatient Attender: BRIAN DING 06/21/2019 12:17:00 PM [facility] Outpatient Attender: BRIAN DING 06/14/2019 12:13:00 PM [facility] Outpatient Attender: BRIAN DING 06/07/2019 12:38:00 PM [facility] Outpatient Attender: BRIAN DING 05/31/2019 12:11:00 PM [facility] Outpatient Attender: BRIAN DING 05/24/2019 12:24:00 PM [facility] Outpatient Attender: BRIAN DING 05/14/2019 12:08:00 PM [facility] Outpatient Attender: BARON DE LA ROSA 05/01/2019 11:00:00 AM [facility] Medications Medication Brand Name Start Date Product Form Dose Route Admi nistrative Instructions Pharmacy Instructions Status Indications Reaction Description Data Source(s) Sodium Chloride 0.111 MEQ/ML Nasal Solution Saline Mist Spra y 03/19/2020 12:00:00 AM EDT active M [facility] ([facility]) Aimovig Aimovig 12/28/2019 12:00:00 AM EDT active [facility] ([facility] ) 24 HR Divalproex Sodium 500 MG Extended Release Oral T ablet [Depakote] Depakote ER 10/03/2019 12:00:00 AM EST ORAL completed [facility] ([facility] ) rizatriptan 10 MG Oral Tablet Rizatriptan Benzoate 10/03/2019 12:00 :00 AM EST ORAL active [facility] ([facility] ) Ibuprofen 800 MG Oral Tablet Ibuprofen 10/03/2019 12:00:00 AM EST ORAL active [facility] ([facility] ) Insurance Providers Payer name Policy type / Coverage type Policy ID Covered libertarian ID Covered libertarian's relationship to wade Policy Wade Plan Information [facility] [id number] [facility] [id number] [facility] [id number] [facility] [id number] [facility] [place] [id number] 01 [id number] [facility] [place] [id number] 01 [id number] [facility] [place] [id number] 01 [id number] [facility] [id number] S [id number] Problems, Conditions, and Diagnoses Code Display Name Description Problem Type Effective Dates Data Source(s) 82734002 Abdominal pain Abdominal pain Problem 08/21/2020 12:00: 00 AM EST [facility] ([facility]) [id number] Appendicitis Appendicitis Problem 05/01/2020 12:00:00 A M EDT [facility] ([facility]) [id number] Epididymitis Epididymitis Problem 04/09/2020 12:00:00 A M EDT [facility] ([facility]) [id number] Bilateral plantar fasciitis Bilateral plantar fasciitis Problem 04/09/2020 12:00:00 AM EDT [facility] ([facility]) [id number] Chronic neck pain Chronic neck pain Problem 03/16 12:00:00 AM EDT [facility] ([facility]) [id number] Chronic back pain Chronic back pain Problem 04/09 12:00:00 AM EDT [facility] ([facility]) [id number] Sleep apnea Sleep apnea Problem 04/09/2020 12:00:00 AM EDT [facility] ([facility]) [id number] Gastroesophageal reflux disease Gastroesophageal reflux disease Problem 04/09/2020 12:00:00 AM EDT [facility] ([facility]) [id number] Tinnitus Tinnitus Problem 04/09/2020 12:00:00 AM ED T [facility] ([facility]) [id number] Migraine Migraine Problem 04/09/2020 12:00:00 AM ED T [facility] ([facility]) [id number] Posttraumatic stress disorder Posttraumatic stress dis order Problem 04/09/2020 12:00:00 AM EDT [facility] ([facility]) [id number] Visual disturbance Visual disturbance Problem 12:00:00 AM EST [facility] ([facility] ) [id number] Dizziness and giddiness Dizziness and giddiness Proble m 10/03/2019 12:00:00 AM EST [facility] ([facility]) [id number] Neck pain Neck pain Problem 10/03/2019 12:00:00 AM ES T [facility] ([facility] ) [id number] Cervico-occipital neuralgia Cervico-occipital neuralgi a Problem 10/03/2019 12:00:00 AM EST [facility] ([facility], ) [id number] Chronic tension-type headache Chronic tension-type hea dache Problem 10/03/2019 12:00:00 AM EST [facility] ([facility], ) [id number] Migraine without aura, not refractory Mi graine without aura, not refractory Problem 10/03/2019 12:00:00 AM EST [facility] ([facility], ) [id number] Encounter for other preprocedural examin ation Encounter for other preprocedural examination Diagnosis 05/09/2020 01:59:00 PM EDT [facility] K36 Other appendicitis Other appendicitis Diagnosis 0 02:57:00 PM EDT [facility] F43.10 Post-traumatic stress disorder, unspecif ied POST-TRAUMATIC STRESS DISORDER, UNSPECIFIED Diagnosis 04/24/2020 12:00:00 PM EDT [facility] R99 Ill-defined and unknown cause of mortali ty Ill-defined and unknown cause of mortality Diagnosis 04/15/2020 08:42:00 AM EDT [facility] R1031 Right lower quadrant pain Right lower quadrant pain Di agnosis 04/09/2020 09:00:00 AM EDT [facility] Surgeries/Procedures Procedure Description Date Indications Data Source(s) Endoscopy Nasal Diagnostic 01/30/2020 12:00:00 AM EDT [facility] ([facility], ) Magnetic Resonance Angiogtaphy Head W/O Contrast Material(S) 10/17/2019 12:00:00 AM EST [facility] ([facility], ) Magnetic Resonance Angiogtaphy Head W/O Contrast Material(S) 10/17/2019 12:00:00 AM EST [facility] ([facility], ) Results ID Date Data Source [id number] 08/27/2020 09:31:00 AM EST [facility] Name Value Range Interpretation Code Description Data Heather rce(s) Supporting Document(s) SARS coronavirus 2 RNA Not Detected [facility] This lab was ordered by [facility] Laboratory and reported by [facility]. ID Date Data Source [id number] 05/13/2020 12:52:00 PM EDT [address] [address] OPERATIVE SUMMARYNAME: JACEK Beltran DATE OF : 1980ATTENDING PHYS: Josesito Weinberg MD DATE: 05/13/20 MR#: [id number] OF PROCEDURE: 05/13/2020PRE-OPERATIVE DIAGNOSIS: Subacute appendicitis.POST-OPERATIVE DIAGNOSIS: Subacute appendicitis.ANESTHESIA: General endotracheal.ATTENDING SURGEON: Dr. Josesito Weinberg.OPERATIVE FINDINGS:Patient had a retrocecal appendix. It was thickened and found to be with long-term/chronicinflammation.PROCEDURE PERFORMED: Appendectomy.DETAILS OF PROCEDURE:Patient was brought to the operating room, placed on the operating table supine position, givengeneral endotracheal anesthesia. Patient's abdomen was now prepped and draped appropriately.Local anesthetic was now infiltrated into the planned operative area using a combination of 2%lidocaine and 0.5% Marcaine mixed in a 50/50 solution. With the use of a scalpel, a transverseRockey-Juan abdominal incision was made and carried down through the skin. Subcutaneous fatwas divided with use of coagulation cautery. The aponeurosis of the external oblique was identifiedand divided with the use of cutting cautery. Additional local anesthetic was now infiltrated. Amuscle splinting incision was now used. Peritoneum was now identified and local anestheticinfiltrated into the peritoneum. The peritoneum was now opened. Right lower quadrant was nowentered and explored. The cecum was identified. At first I could not identify the appendix. I foundit to be located in a retrocecal position. I mobilized the cecum. I then was able to deliver theretrocecal appendix, which was markedly thickened and curled upon itself. Once this was deliveredin the operative site, the mesentery of the appendix was now clamped, divided, and ligated with 2-0Vicryl. The appendix was now divided between two straight clamps, removed, and sent toPathology for evaluation. The appendiceal stump was now ligated with 2-0 Vicryl. The mesentery,as noted above, was ligated with 2-0 Vicryl. The operative area was now re-inspected, completehemostasis assured. The cecum was returned to the abdominal cavity, and plans were made forclosure. Internal oblique was re-approximated with the use of continuous running suture of 3-0Monocryl. External oblique was re-approximated with the use of continuous running suture of 3-0Monocryl. Suri's fascia re-ap proximated with the use of a single suture of 4-0 Monocryl, and 1 [place] [address] OPERATIVE SUMMARYNAME: JACEK Beltran DATE OF : 1980ATTENDING PHYS: Josesito Weinberg MD DATE: 05/13/20 MR#: [id number] re-approximated the use of interrupted subarticular sutures of 4-0 Monocryl and Dermabondglue.ESTIMATED BLOOD LOSS OF ENTIRE PROCEDURE: Less than 10 cc.IV FLUIDS: Crystalloid.DRAINS: None.COMPLICATIONS: None.DISPOSITION:Patient tolerated procedure well, and was sent to the recovery room in good condition.DD: Josesito Weinberg MD 05/13/20 12:34DT: RODOLFO 05/13/20 12:43DS: Josesito Weinberg MD 05/22/20 13:39 2 Name Value Range Interpretation Code Description Data Heather rce(s) Supporting Document(s) ID Date Data Source [id number] 04/24/2020 12:07:00 [place] [address] PHONE: [phone] FAX: [phone] Name .................. : JACEK Beltran Acct Number.................. : [id number] ROOM. ................. : MR Number ................... : [id number] Stay type ............. : O/P Discharge Date......... ... : 04/23/20 Admit Date ......... : 04/23/20 Admit Phys .................... : OBENFELIX Date of ....... : 1980 Family Phys ................... : ARIEL GEETHA Phone .................. : [phone] Age ................................ : 39 Film# .................. .:[id number] Sex ................................. : M Unsigned transcriptions are preliminary reports and do not represent a medical or legal document CT ABD & PELV W/O FOL W/[place] [id number] COMPLETE:04/23/20 09:42 BEM [id number] (REASON FOR ABDOMEN: RIGHT LOWER QUAD PAIN CT OF THE ABDOMEN AND PELVIS WITHOUT FOLLOWED BY WITH CONTRAST ENHANCEMENT: HISTORY: Right lower quadrant pain. FINDINGS: The lung bases are clear. The liver and spleen appear normal. The adrenals and kidneys appear normal. The pancreas is within normal limits. The gallbladder appears normal. There is a moderate amount of stool identified within the colon. There are no signs of any free fluid identified. In the right lower quadrant, there is a calcification identified. That calcification is surrounded by some soft tissue density and it appears as though it is in a blind ending loop consistent with the appendix. If that is the appendix, it is also thickened to approximately 1.7 cm, but there is no inflammation around it at this time. This can be seen with some low level inflammation in the appendix which may result in acute appendicitis. The right and left kidneys appear normal. The bladder appears normal. Other bowel loops appear normal. No mesenteric or retroperitoneal adenopathy. Gallbladder stones identified. IMPRESSION: Calcification in the right lower quadrant which appear to be in a thickened appendix to 1.7 cm without inflammation around it, suggestive of low grade or subacute appendicitis. Results were phoned to the attending physician. While performing the above CT examination, radiation dose reduction was accomplished utilizing automated exposure control, adjusting of the mA and kV based on the patient's body size and/or the use of imperative reconstructive techniques. Page [address] of [address] [place] [id number] PHONE: [phone] FAX: [phone] Name .................. : JACEK Beltran Acct Number.................. : [id number] ROOM. ................. : MR Number ................... : [id number] Stay type ............. : O/P Discharge Date......... ... : 04/23/20 Admit Date ......... : 04/23/20 Admit Phys .................... : OBENFELIX Date of ....... : 1980 Family Phys ................... : ARIEL INIGUEZ Phone .................. : [phone] Age ................................ : 39 Film# .................. .:[id number] Sex ................................. : Tammy liang transcriptions are preliminary reports and do not represent a medical or legal document CT ABD & PELV W/[place] F[place] [id number] COMPLETE:04/23/20 09:42 BEM 69552 (REASON FOR ABDOMEN: RIGHT LOWER QUAD PAIN CT dose: 1132.0 mGycm Contrast agent in mL: 75 Isovue 370 Method of administration: Intravenous Electronically Reviewed and Signed By CATHLEEN OROZCO MD , 04/24/20 12:07, GMM Transcribe Initials: DZ , Transcribe Date: 04/24/20 00:55, Dictation Date: Copy for: MARÍA MORALES via fax Copy for: 710 MED REC Page 2 of 2 Name Value Range Interpretation Code Description Data Heather rce(s) Supporting Document(s) ID Date Data Source [id number] 04/10/2020 09:13:00 AM EDT [facility] ([facility]) Name Value Range Interpretation Code Description Data Heather rce(s) Supporting Document(s) CT Abd &Pelv W/O Fol W/IV cont Laboratory test result [facility] ([facility]) ID Date Data Source [id number] 04/09/2020 09:13:00 AM EDT [facility] ([facility]) Name Value Range Interpretation Code Description Data Heather rce(s) Supporting Document(s) Spec [place] 1.000 [facility] ([facility]) Color of Urine Laboratory test result [facility] ([facility]) Appearance of Urine Laboratory test result [facility] ([facility]) Protein [Presence] in Urine by Test strip Laboratory test result [facility] ([facility]) pH of Urine by Test strip 7 MEDE NT ([facility]) Nitrate [Presence] in Urine Laboratory test result [facility] ([facility]) Leukocytes Laboratory test result [facility] ([facility]) Urobilinogen Laboratory test result [facility] ([facility]) Inhouse Glucose Laboratory test result [facility] ([facility]) Ketones [Presence] in Urine by Test strip Laboratory test result [facility] ([facility]) Blood type and Indirect antibody screen panel - Blood Laboratory test result [facility] ([facility]) Bilirubin.total [Presence] in Urine by Test strip Laboratory test res ult [facility] ([facility]) Procedure Vital Signs ID Date Data Source UNK Name Value Range Interpretation Code Description Data Source(s) Body temperature 97.5 [degF] 97.5 [degF] [facility] ([facility]) Body weight 74.844 kg 74.844 kg [facility]) Body mass index (BMI) [Ratio] 24.4 kg/m2 24.4 k g/m2 [facility] ([facility]) Heart rate 54 /min 54 /min [facility]) Diastolic blood pressure 89 mm[Hg] 89 mm[Hg] [facility] ([facility]) Systolic blood pressure 121 mm[Hg] 121 mm[Hg] M EDENT ([facility]) Body weight 165.00 [lb_av] 165.00 [lb_av] [facility] T ([facility]) Body height 69 [in_i] 69 [in_i] [facility] ([facility]) 5'9" Body surface area Derived from formula 1.90 m2 1.90 m2 [facility] ([facility]) Body mass index (BMI) [Ratio] 24.4 kg/m2 24.4 k g/m2 [facility] ([facility]) Body height 69 [in_i] 69 [in_i] [facility] ([facility]) 5'9" Body weight 74.844 kg 74.844 kg [facility] ([facility]) Body weight 165.00 [lb_av] 165.00 [lb_av] [facility] T ([facility]) Respiratory rate 16 /min 16 /min [facility] ( [facility]) Body temperature 97.5 [degF] 97.5 [degF] [facility] ([facility]) Heart rate 63 /min 63 /min [facility] ([facility]) Diastolic blood pressure 79 mm[Hg] 79 mm[Hg] [facility] ([facility]) Systolic blood pressure 123 mm[Hg] 123 mm[Hg] M [facility]ENT ([facility]) Body surface area Derived from formula 1.90 m2 1.90 m2 [facility] ([facility]) Body mass index (BMI) [Ratio] 24.4 kg/m2 24.4 k g/m2 [facility] ([facility]) Body height 69 [in_i] 69 [in_i] [facility] ([facility]) 5'9" Body weight 74.844 kg 74.844 kg [facility] ([facility]) Body weight 165.00 [lb_av] 165.00 [lb_av] [facility] T ([facility]) Respiratory rate 16 /min 16 /min [facility] ( [facility]) Body temperature 97.7 [degF] 97.7 [degF] [facility] ([facility]) Heart rate 56 /min 56 /min [facility] ([facility]) Diastolic blood pressure 85 mm[Hg] 85 mm[Hg] [facility] ([facility]) Systolic blood pressure 124 mm[Hg] 124 mm[Hg] [facility] ([facility]) Body weight 74.844 kg 74.844 [facility] Body mass index (BMI) [Ratio] 24.4 kg/m2 24.4 k g/m2 [facility] ([facility], ) Body weight 165.00 [lb_av] 165.00 [lb_av] [facility] T ([facility], ) Body height 69 [in_i] 69 [in_i] [facility] ([facility], ) 5'9" Oxygen saturation in Arterial blood by Pulse oximetry 99 % 99 % [facility] ([facility]) Respiratory rate 20 /min 20 /min [facility] ( [facility]) Heart rate 62 /min 62 /min [facility] ([facility]) Diastolic blood pressure 81 mm[Hg] 81 mm[Hg] [facility] ([facility]) Systolic blood pressure 129 mm[Hg] 129 mm[Hg] [facility] ([facility]) Body weight 74.844 kg 74.844 kg [facility] ([facility], ) Body mass index (BMI) [Ratio] 24.4 kg/m2 24.4 k g/m2 [facility] ([facility], ) Body weight 165.00 [lb_av] 165.00 [lb_av] [facility] T ([facility], ) Body height 69 [in_i] 69 [in_i] [facility] ([facility]) 5'9" Body weight 72.576 kg 72.576 [facility] Body mass index (BMI) [Ratio] 23.6 kg/m2 23.6 k g/m2 [facility] ([facility]) Body weight 160.00 [lb_av] 160.00 [lb_av] [facility] T ([facility]) Body height 69 [in_i] 69 [in_i] [facility] ([facility]) 5'9" Body weight 72.576 kg 72.576 kg [facility] ([facility]) Body mass index (BMI) [Ratio] 23.6 kg/m2 23.6 k g/m2 [facility] ([facility]) Body weight 160.00 [lb_av] 160.00 [lb_av] [facility] T ([facility]) Body height 69 [in_i] 69 [in_i] [facility] ([facility]) 5'9" Body mass index (BMI) [Ratio] 23.6 kg/m2 23.6 k g/m2 [facility] ([facility]) Body weight 160.00 [lb_av] 160.00 [lb_av] [facility] T ([facility]) Body height 69 [in_i] 69 [in_i] [facility] ([facility]) 5'9" Respiratory rate 14 /min 14 /min [facility] ( [facility]) Heart rate 68 /min 68 /min [facility] ([facility]) Diastolic blood pressure 75 mm[Hg] 75 mm[Hg] [facility] ([facility]) Systolic blood pressure 125 mm[Hg] 125 mm[Hg] [facility] ID Date Data Source [id number] 05/28/2020 01:11:30 PM EDT [facility] Name Value Range Interpretation Code Description Data Source(s) WEIGHT RECORDED 165.00 pounds 165.00 pounds [facility] Height 69 Inches 069 Inches [facility]
--- NOTE | 2020-09-01 10:30 | ROOR ---
Patient Name: Kimberly Mirza Procedure Date: 09/01/2020 10:18 AM Date of : 1980 Age: 40 Room: [facility] Gender: Male Note Status: Finalized Procedure: Upper Endoscopy + Biopsies Indications: Exclusion of peptic ulcer, Follow-up of peptic ulcer Providers: Eavn Salcedo MD Referring MD: RAJANI GERARD MD Requesting Provider: Medicines: Monitored Anesthesia Care Complications: No immediate complications. Procedure: Pre-Anesthesia Assessment: - The heart rate, respiratory rate, oxygen saturations, blood pressure, adequacy of pulmonary ventilation, and response to care were monitored throughout the procedure. The Endoscope was introduced through the mouth, and advanced to the second part of duodenum. The upper GI endoscopy was accomplished without difficulty. The patient tolerated the procedure well. Findings: The Z-line was regular and was found 40 cm from the incisors. No other significant abnormalities were identified in a careful examination of the stomach. Biopsies were taken with a cold forceps in the gastric antrum for Helicobacter pylori testing. The exam of the duodenum was otherwise normal. Impression: - Z-line regular, 40 cm from the incisors. - Biopsies were taken with a cold forceps for Helicobacter pylori testing. - The examination was otherwise normal. Recommendation: - Patient has a contact number available for emergencies. The signs and symptoms of potential delayed complications were discussed with the patient. Return to normal activities tomorrow. Written discharge instructions were provided to the patient. - High fiber diet. - Discharge patient to home. - Continue present medications. - Await pathology results. - Return to referring physician. - The findings and recommendations were discussed with the patient. Procedure Code(s): --- Professional --- 78949, Esophagogastroduodenoscopy, flexible, transoral; with biopsy, single or multiple Diagnosis Code(s): --- Professional --- K27.9, Peptic ulcer, site unspecified, unspecified as acute or chronic, without hemorrhage or perforation CPT copyright 2019 [employer]. All rights reserved. The codes documented in this report are preliminary and upon manager inside review may be revised to meet current compliance requirements. Evan Salcedo MD Evan Salcedo MD 09/01/2020 10:29:46 AM Electronically signed by Evan Salcedo MD Number of Addenda: 0 Note Initiated On: 09/01/2020 10:18 AM Estimated Blood Loss: Estimated blood loss: none.
[2020-09-01] MEDS ORDERED: propofoL 200 MG/20 ML VIAL As Ordered ONE (10:36)
[2020-09-01] MEDS ORDERED: LIDOCAINE 2% 100MG/5ML SDV (FOR ANES.) As Ordered ONE (10:36)
[2020-09-01 10:45] VITALS: BP 104/65
== END 2020-09-01 11:05 | disposition home or self-care (01) ==
LOC: M OPP 09:26
PROVIDERS: ATTEND Internal Medicine Gastroenterology
DX: K27.9 Peptic ulcer, site unspecified, unspecified as acute or chronic, without hemorrhage or perforation (principal)